=== PATIENT | female | born 1940 | race Caucasian/White ===

== ENCOUNTER 2016-06-09 19:17 | Emergency (ER) | payer MEDICARE, BC ==
--- NOTE | 2016-06-13 11:27 | ER ---
ADMIT: 06/09/2016 RM/LOC: ER [facility] MR#: [id number] [facility] [address] [place], [place] [id number] ZANE ARNOLD [address] [facility] [address] [address] Emergency Room Report SEX: F AGE: 75 : 1940 DATE: 06/09/2016 ADDENDUM: CHIEF COMPLAINT: Fall. HISTORY OF PRESENT ILLNESS: This is a 75-year-old who said there was a isma sticking out the ground that she tripped over. She hurt her left lower leg and her right wrist. X-rays were done of those, negative for any fracture, over-read by Dr. Lynn. I did place her in a knee immobilizer. Told her I definitely think she could have torn something within her knee, but there is no fracture at this time. We used a walker with a knee immobilizer. She was able to bear some weight on it. Feels okay going home at this time. I told her it is very important to follow up with her primary care physician or Orthopedic this week to possibly have an MRI of that knee or have further workup of the knee. I am sending her home with [facility] for pain, having her ice, activity as tolerated, and again follow up this week to further evaluate. CLINICAL IMPRESSION: Contusion to right wrist and left leg. JET Valentin / Luiz Lynn MD / lucio JOB #: [id number] CC: Luiz Lynn MD, Attending Physician Farhat Ayala MD, Family Physician
== END 2016-06-09 20:55 | disposition home or self-care (01) ==
LOC: ER 19:17
DX: S60.211A Contusion of right wrist, initial encounter (principal); S80.02XA Contusion of left knee, initial encounter; W18.09XA Striking against other object with subsequent fall, initial encounter; Y92.410 Unspecified street and highway as the place of occurrence of the external cause